=== PATIENT | female | born 1945 | race Caucasian/White ===

== ENCOUNTER 2020-05-15 14:18 | Outpatient (CLI) | payer MEDICARE, SELFPAY ==
[2020-05-15 14:38] LABS: Basophils Absolute Auto 0.1 K/mm3 (0.0-0.1); Basophils Percent Auto 1.1 % (0.2-1.2); Eosinophils Absolute Auto 0.4 K/mm3 (0-0.3); Eosinophils Percent Auto 5.1 % (0-4.4); Hematocrit 42.7 % (37.0-47.0); Hemoglobin 13.4 g/dL (12.0-15.0); Immature Granulocyte Absolute 0.02 K/mm3 (0.00-0.031); Immature Granulocyte Percent A 0.3 % (0-0.5); Lymphocytes Absolute Auto 2.32 K/mm3 (0.9-3.2); Lymphocytes Percent Auto 31.2 % (18.3-44.2); Mean Corpuscular HGB Conc 31.4 g/dl (32-36); Mean Corpuscular Hemoglobin 28.8 pg (26-34); Mean Corpuscular Volume 91.8 fl (80-100); Mean Platelet Volume 9.7 fl (7.4-10.4); Monocytes Absolute Auto 0.6 K/mm3 (0.1-0.6); Monocytes Percent Auto 7.7 % (2.6-8.5); Neutrophils Absolute Auto 4.1 K/mm3 (1.3-6.7); Neutrophils Percent Auto 54.6 % (45.5-73.1); Platelet Count Result 285 k/mm3 (150-375); Red Blood Count 4.65 M/mm3 (4.2-5.4); Red Cell Distribution Width 12.9 % (11.5-14.5); White Blood Count 7.4 K/mm3 (4.5-10.0)
[2020-05-15 16:42] LABS: Iron 90 ug/dL (37-170)
[2020-05-15 16:51] LABS: Percent Iron Saturation 27 % (20-50)
== END 2020-05-15 14:19 | disposition home or self-care (01) ==
LOC: ANHLAB 14:20
PROVIDERS: PCP Family Medicine; Visit Provider Internal Medicine Hematology & Oncology
DX: D50.9 Iron deficiency anemia, unspecified (principal)
CPT/HCPCS: 36415; 82728; 83540; 83550; 85025

== ENCOUNTER 2021-01-20 14:39 | Outpatient (CLI) | payer MEDICARE, SELFPAY | END 2021-01-20 14:40 | disposition home or self-care (01) | LOC: ANHCOVIDVC 14:39 | PROVIDERS: PCP Family Medicine | DX: Z23 Encounter for immunization (principal) | CPT/HCPCS: 0001A; 91300 ==

== ENCOUNTER 2021-02-10 14:20 | Outpatient (CLI) | payer MEDICARE, SELFPAY | END 2021-02-10 14:21 | disposition home or self-care (01) | LOC: ANHCOVIDVC 14:20 | PROVIDERS: PCP Family Medicine | DX: Z23 Encounter for immunization (principal) | CPT/HCPCS: 0002A; 91300 ==

== ENCOUNTER 2021-06-25 13:53 | Outpatient (CLI) | payer MEDICARE, SELFPAY ==
--- NOTE | ~2021-06-25 | US_ITS ---
EXAMINATION: US carotid duplex BI DATE: 06/25/2021 14:26 INDICATION: Atherosclerosis. TECHNIQUE: Grayscale, color Doppler, and pulsed Doppler images of the cervical carotid arteries were obtained. The degree of vessel stenosis is placed in one of the following categories: normal, <50%, 5 0-69%, >=70% but less than near-occlusion, near-occlusion, or total occlusion. Note that percent sten osis relative to normal distal artery lumen diameter is indirectly measured from velocity measurement s as described by Clark, et al. Radiology 2003; 229:340-346. Notes: Normal: Peak systolic velocity <125 centimeters/sec and no plaque <50%. Peak systolic velocity <125 ( EDV <40; ICA/CCA PSV ratio <2.0; used these factors only a tandem lesions or low cardiac output or co ntralateral disease) 50-69 %: PSV 125-230 (EDV 40-100; ratio 2-4) >= 70% but less than near occlusion: PSV greater than 230 (EDV > 100; ratio> 4.0) Near Occlusion: PSV that is variable; markedly narrowed lumen Occlusion: Absent flow on color/spectral Doppler and no lumen on vanegas scale. COMPARISON: None. FINDINGS: RIGHT: The right common carotid artery (CCA) peak systolic velocity (PSV) is 104 cm/s. The right internal ca rotid artery (ICA) PSV is 70 cm/s. The right ICA end-diastolic velocity (EDV) is 12 cm/s. The right I CA/CCA PSV ratio is 0.7. The external carotid artery (ECA) PSV is 85 cm/s. There is antegrade flow in the right vertebral artery. LEFT: The left CCA PSV is 99 cm/s. The left ICA PSV is 73 cm/s. The left ICA EDV is 15 cm/s. The left ICA/C CA PSV ratio is 0.7. The ECA PSV is 81 cm/s. There is antegrade flow in the left vertebral artery. IMPRESSION: 1. Less than 50% stenosis in the right internal carotid artery by sonographic criteria. 2. Less than 50% stenosis in the left internal carotid artery by sonographic criteria. Reviewed, dictated and finalized at location A. IMPRESSION: 1. Less than 50% stenosis in the right internal carotid artery by sonographic dianne burks. 2. Less than 50% stenosis in the left internal carotid artery by sonographic serge lobo.
--- NOTE | ~2021-06-25 | US_ITS ---
US thyroid INDICATION: Follow-up thyroid nodules TECHNIQUE: Real-time sonographic images of the thyroid gland were obtained. COMPARISON: Ultrasound dated 08/09/2015 FINDINGS: The right thyroid lobe measures 3.1 x 1.9 x 1.8 cm. The left thyroid lobe measures 2.8 x 1 .5 x 1.7 cm. There is normal echotexture and echogenicity throughout the thyroid gland. There is a st able hypoechoic spongiform 8 mm right thyroid mass which is wider than tall, ill-defined margins and no calcifications, TR 2, not suspicious. No other discrete masses are identified. Normal vascular fortunato w is present. IMPRESSION: 1. Stable benign-appearing right thyroid nodule measuring 8 mm, TR 2, not suspicious. Otherwise, unr emarkable thyroid ultrasound. Reviewed, dictated and finalized at location A. IMPRESSION: 1. Stable benign-appearing right thyroid nodule measuring 8 mm, TR 2, not susp icious. Otherwise, unremarkable thyroid ultrasound.
== END 2021-06-25 13:54 | disposition home or self-care (01) ==
LOC: ANHIMG 13:53
PROVIDERS: PCP Family Medicine; Visit Provider Physician Assistant Medical
DX: R09.89 Other specified symptoms and signs involving the circulatory and respiratory systems (principal); E04.1 Nontoxic single thyroid nodule
CPT/HCPCS: 76536; 93880

== ENCOUNTER 2021-07-30 14:12 | Outpatient (CLI) | payer MEDICARE, SELFPAY ==
[2021-07-30 14:32] LABS: Basophils Absolute Auto 0.1 K/mm3 (0.0-0.1); Basophils Percent Auto 1.3 % (0.2-1.2); Eosinophils Absolute Auto 0.3 K/mm3 (0-0.3); Eosinophils Percent Auto 4.6 % (0-4.4); Hematocrit 37.9 % (37.0-47.0); Hemoglobin 11.8 g/dL (12.0-15.0); Immature Granulocyte Absolute 0.02 K/mm3 (0.00-0.031); Immature Granulocyte Percent A 0.3 % (0-0.5); Lymphocytes Absolute Auto 1.79 K/mm3 (0.9-3.2); Lymphocytes Percent Auto 28.4 % (18.3-44.2); Mean Corpuscular HGB Conc 31.1 g/dl (32-36); Mean Corpuscular Hemoglobin 28.4 pg (26-34); Mean Corpuscular Volume 91.1 fl (80-100); Mean Platelet Volume 8.9 fl (7.4-10.4); Monocytes Absolute Auto 0.6 K/mm3 (0.1-0.6); Neutrophils Absolute Auto 3.6 K/mm3 (1.3-6.7); Neutrophils Percent Auto 56.4 % (45.5-73.1); Platelet Count Result 260 k/mm3 (150-375); Red Blood Count 4.16 M/mm3 (4.2-5.4); Red Cell Distribution Width 14.3 % (11.5-14.5); White Blood Count 6.3 K/mm3 (4.5-10.0)
[2021-07-30 14:36] LABS: Blood Urea Nitrogen 27 mg/dL (8-26); Carbon Dioxide 26 mmol/L (22-30); Chloride 101 mmol/L (98-109); Estimated Glomerular Filt Rate > 60; Glucose 151 mg/dL (70-105); Potassium 4.4 mmol/L (3.5-4.9); Sodium 139 mmol/L (138-146)
[2021-07-30 16:37] LABS: Iron 42 ug/dL (37-170)
[2021-07-30 16:45] LABS: Percent Iron Saturation 12 % (20-50)
== END 2021-07-30 14:13 | disposition home or self-care (01) ==
LOC: ANHLAB 14:19
PROVIDERS: PCP Family Medicine; Visit Provider Internal Medicine Hematology & Oncology
DX: D50.9 Iron deficiency anemia, unspecified (principal)
CPT/HCPCS: 36415; 80048; 82728; 83540; 83550; 85025

== ENCOUNTER 2022-01-28 13:46 | Outpatient (CLI) | payer MEDICARE, SELFPAY ==
[2022-01-28 14:03] LABS: Basophils Percent Auto 0.5 % (0.2-1.2); Eosinophils Absolute Auto 0.2 K/mm3 (0-0.3); Eosinophils Percent Auto 3.4 % (0-4.4); Hematocrit 44.7 % (37.0-47.0); Hemoglobin 13.8 g/dL (12.0-15.0); Immature Granulocyte Absolute 0.02 K/mm3 (0.00-0.031); Immature Granulocyte Percent A 0.3 % (0-0.5); Lymphocytes Absolute Auto 1.66 K/mm3 (0.9-3.2); Lymphocytes Percent Auto 28.4 % (18.3-44.2); Mean Corpuscular HGB Conc 30.9 g/dl (32-36); Mean Corpuscular Volume 93.9 fl (80-100); Mean Platelet Volume 9.4 fl (7.4-10.4); Monocytes Absolute Auto 0.6 K/mm3 (0.1-0.6); Monocytes Percent Auto 9.8 % (2.6-8.5); Neutrophils Absolute Auto 3.4 K/mm3 (1.3-6.7); Neutrophils Percent Auto 57.6 % (45.5-73.1); Platelet Count Result 222 k/mm3 (150-375); Red Blood Count 4.76 M/mm3 (4.2-5.4); Red Cell Distribution Width 14.2 % (11.5-14.5); White Blood Count 5.8 K/mm3 (4.5-10.0)
[2022-01-28 14:07] LABS: Blood Urea Nitrogen 21 mg/dL (8-26); Carbon Dioxide 28 mmol/L (22-30); Chloride 101 mmol/L (98-109); Estimated Glomerular Filt Rate > 60; Glucose 141 mg/dL (70-105); Potassium 4.5 mmol/L (3.5-4.9); Sodium 140 mmol/L (138-146)
[2022-01-28 16:21] LABS: Iron 58 ug/dL (37-170)
[2022-01-28 16:31] LABS: Percent Iron Saturation 17 % (20-50)
== END 2022-01-28 13:47 | disposition home or self-care (01) ==
LOC: ANHLAB 13:47
PROVIDERS: PCP Family Medicine; Visit Provider Internal Medicine Hematology & Oncology
DX: D50.9 Iron deficiency anemia, unspecified (principal)
CPT/HCPCS: 36415; 80048; 82728; 83540; 83550; 85025

== ENCOUNTER 2022-08-27 12:47 | Outpatient (CLI) | payer MEDICARE, SELFPAY ==
[2022-08-27 13:00] LABS: Basophils Absolute Auto 0.1 K/mm3 (0.0-0.1); Basophils Percent Auto 0.7 % (0.2-1.2); Eosinophils Absolute Auto 0.3 K/mm3 (0-0.3); Eosinophils Percent Auto 3.9 % (0-4.4); Hematocrit 42.4 % (37.0-47.0); Hemoglobin 13.5 g/dL (12.0-15.0); Immature Granulocyte Absolute 0.03 K/mm3 (0.00-0.031); Immature Granulocyte Percent A 0.4 % (0-0.5); Lymphocytes Absolute Auto 1.74 K/mm3 (0.9-3.2); Lymphocytes Percent Auto 24.5 % (18.3-44.2); Mean Corpuscular HGB Conc 31.8 g/dl (32-36); Mean Corpuscular Hemoglobin 29.5 pg (26-34); Mean Corpuscular Volume 92.6 fl (80-100); Mean Platelet Volume 9.4 fl (7.4-10.4); Monocytes Absolute Auto 0.6 K/mm3 (0.1-0.6); Monocytes Percent Auto 7.7 % (2.6-8.5); Neutrophils Absolute Auto 4.5 K/mm3 (1.3-6.7); Neutrophils Percent Auto 62.8 % (45.5-73.1); Platelet Count Result 213 k/mm3 (150-375); Red Blood Count 4.58 M/mm3 (4.2-5.4); Red Cell Distribution Width 13.6 % (11.5-14.5); White Blood Count 7.1 K/mm3 (4.5-10.0)
[2022-08-27 13:03] LABS: Blood Urea Nitrogen 19 mg/dL (8-26); Carbon Dioxide 28 mmol/L (22-30); Chloride 102 mmol/L (98-109); Estimated Glomerular Filt Rate > 60; Glucose 162 mg/dL (70-105); Potassium 4.5 mmol/L (3.5-4.9); Sodium 140 mmol/L (138-146)
== END 2022-08-27 12:48 | disposition home or self-care (01) ==
LOC: ANHLAB 12:48
PROVIDERS: PCP Family Medicine; Visit Provider Internal Medicine Hematology & Oncology
DX: D50.9 Iron deficiency anemia, unspecified (principal)
CPT/HCPCS: 36415; 80047; 85025

== ENCOUNTER 2023-02-02 13:39 | Outpatient (CLI) | payer MEDICARE, SELFPAY ==
--- NOTE | ~2023-02-02 | CT_ITS ---
EXAMINATION: CT abdomen pelvis w con INDICATION: Lower abdominal pain TECHNIQUE: Computed tomographic images of the abdomen and pelvis were obtained after the administrati on of 100 cc of Omnipaque 350 intravenous contrast. The dose-length product (DLP) was 1594.60 mGy-cm. Automated exposure control and iterative reconstruction technique were employed. COMPARISON: 03/17/2019 FINDINGS: Minimal dependent atelectasis is present in the lung bases. The heart size is normal. The g allbladder is surgically absent. There is mild enlargement of the common bile duct and central intrah epatic ducts which is likely due to post cholecystectomy state. There is a small sliding hiatal herni a. The liver, spleen, pancreas, and adrenal glands are normal. The kidneys are unremarkable. No patho logically enlarged abdominal or pelvic lymph nodes are identified. There is no free intraperitoneal g as or evidence of bowel obstruction. There is calcified atherosclerosis of the aorta and many of the other arteries. No pathologically enlarged abdominal or pelvic lymph nodes are identified. There are changes of right total hip arthroplasty. There is severe lumbar spondylosis. A large volume of coloni c stool is present. IMPRESSION: 1. No CT correlate for the patient's symptoms. Reviewed, dictated and finalized at location F.
[2023-02-02 14:40] LABS: Estimated Glomerular Filt Rate 60
== END 2023-02-02 13:40 | disposition home or self-care (01) ==
PROVIDERS: PCP Family Medicine; Visit Provider Physician Assistant Medical
DX: R10.30 Lower abdominal pain, unspecified (principal); K92.1 Melena
CPT/HCPCS: 74177; Q9967

== ENCOUNTER 2023-07-01 08:12 | Outpatient (CLI) | payer MEDICARE, SELFPAY ==
--- NOTE | ~2023-07-01 | US_ITS ---
EXAMINATION: US abdomen limited DATE: 07/01/2023 09:14 INDICATION: Abnormal liver enzymes TECHNIQUE: Multiple grayscale and Doppler ultrasound images of the abdomen were obtained. COMPARISON: 10/22/2015 FINDINGS: Bowel gas obscures visualization of the pancreas. The visualized portions of the pancreas a re unremarkable. The liver demonstrates increased echogenicity, heterogenous echotexture, and decreas ed through transmission. No surface nodularity. Normal hepatopetal flow in the main portal vein. The gallbladder is surgically absent. The common bile duct is obscured by bowel gas. IMPRESSION: 1. Diffuse hepatic steatosis. Reviewed, dictated and finalized at location A.
== END 2023-07-01 08:13 | disposition home or self-care (01) ==
PROVIDERS: PCP Family Medicine; Visit Provider Nurse Practitioner Family
DX: R74.8 Abnormal levels of other serum enzymes (principal); R10.10 Upper abdominal pain, unspecified; K76.0 Fatty (change of) liver, not elsewhere classified
CPT/HCPCS: 76705

== ENCOUNTER 2024-01-11 13:08 | Outpatient (CLI) | payer MEDICARE, SELFPAY ==
--- NOTE | ~2024-01-11 | US_ITS ---
EXAMINATION: US axilla LT DATE: 01/11/2024 14:44 INDICATION: Swollen and tender lymph nodes at the neck and left axilla TECHNIQUE: Multiple grayscale and Doppler ultrasound images of the left axilla were obtained. COMPARISON: None FINDINGS: 3.0 x 2.6 x 1.1 cm left axillary lymph node with central fatty hilum. No other left axillary lymph no doc or other abnormal masses or fluid collections identified at the region of concern. IMPRESSION: 1. Mildly enlarged 3.0 x 2.6 x 1.1 cm left axillary lymph node which could be reactive, metastatic or related to lymphoma. Could consider ultrasound-guided core needle biopsy. Reviewed, dictated and finalized at location A. TLING ROOM OPERATOR IMPRESSION: 1. Mildly enlarged 3.0 x 2.6 x 1.1 cm left axillary lymph node which could be r eactive, metastatic or related to lymphoma. Could consider ultrasound-guided co re needle biopsy.
--- NOTE | ~2024-01-11 | US_ITS ---
EXAMINATION: US soft tissue head and neck DATE: 01/11/2024 14:44 INDICATION: Left neck focal swelling. TECHNIQUE: Multiple grayscale and Doppler ultrasound images of the head and neck were obtained. COMPARISON: None FINDINGS: There is no abnormal mass or lymphadenopathy in the patient's area of concern in left neck. IMPRESSION: 1. No abnormal mass or lymphadenopathy in the patient's area of concern in left neck. Reviewed, dictated and finalized at location E. SILO TENDER
== END 2024-01-11 13:09 | disposition home or self-care (01) ==
PROVIDERS: PCP Family Medicine; Visit Provider Nurse Practitioner Family
DX: R59.9 Enlarged lymph nodes, unspecified (principal); L03.113 Cellulitis of right upper limb
CPT/HCPCS: 76536; 76882

== ENCOUNTER 2024-02-10 08:59 | Outpatient (CLI) | payer MEDICARE, SELFPAY ==
--- NOTE | ~2024-02-10 | US_ITS ---
EXAMINATION: US axilla LT DATE: 02/10/2024 10:41 INDICATION: Left axillary lymphadenopathy. TECHNIQUE: Multiple grayscale and Doppler ultrasound images of the left axilla were obtained. COMPARISON: Left axillary ultrasound 01/11/2024 FINDINGS: There are no enlarged lymph nodes in the left axilla. IMPRESSION: 1. No abnormal left axillary lymphadenopathy. The biopsy was canceled. Reviewed, dictated and finalized at location A.
== END 2024-02-10 09:00 | disposition home or self-care (01) ==
PROVIDERS: PCP Family Medicine; Visit Provider Nurse Practitioner Family
DX: R22.32 Localized swelling, mass and lump, left upper limb (principal)
CPT/HCPCS: 76882

== ENCOUNTER 2024-02-29 12:49 | Outpatient (CLI) | payer MEDICARE, SELFPAY ==
--- NOTE | ~2024-02-29 | XR_ITS ---
XR chest 2V 02/29/2024 13:45 Indication: Wheezing for 2 months Procedure: AP and lateral views of the chest Comparison: No prior studies for comparison. Findings: Heart size normal. No focal air space disease, pulmonary edema, pleural effusion or suspect ed pneumothorax. Impression: 1: No acute cardiopulmonary disease. Reviewed, dictated and finalized at location B. Impression: 1: No acute cardiopulmonary disease.
--- NOTE | ~2024-02-29 | XR_ITS ---
XR cervical spine 4-5V 02/29/2024 13:45 Indication: Neck pain Procedure: 4 view cervical spine Comparison: 08/05/2015 Findings: There is advanced multilevel degenerative disc disease with disc narrowing at all cervical spine levels. There is degenerative anterolisthesis at C4-5. There is severe multilevel uncinate and facet hypertrophy. Lung apices are unremarkable. Odontoid process is normal. No significant preverteb ral soft tissue abnormality. Impression: 1: Severe cervical spondylosis. Reviewed, dictated and finalized at location B. Impression: 1: Severe cervical spondylosis.
--- NOTE | ~2024-02-29 | XR_ITS ---
Left Shoulder Technique: AP and scapular Y views were obtained. Clinical History: Pain Findings: No fracture or dislocation is seen. There is moderate to advanced degenerative change of th e glenohumeral joint, with prominent inferomedial humeral head osteophyte present. AC joint intact.. Soft tissues are unremarkable. Impression: Moderate to advanced glenohumeral joint degenerative change. Reviewed, dictated and finalized at location . Impression: Moderate to advanced glenohumeral joint degenerative change.
== END 2024-02-29 12:50 | disposition home or self-care (01) ==
LOC: ANHIMG 12:52
PROVIDERS: PCP Family Medicine; Visit Provider Physician Assistant
DX: R06.2 Wheezing (principal); M47.892 Other spondylosis, cervical region; M19.012 Primary osteoarthritis, left shoulder
CPT/HCPCS: 71046; 72050; 73030

== ENCOUNTER 2024-08-07 16:39 | Emergency (ER) | payer MEDICARE, SELFPAY ==
--- NOTE | ~2024-08-07 | XR_ITS ---
EXAM: XR shoulder LT min 2V, XR humerus LT DATE: 08/07/2024 18:07 HISTORY: pain lt shoulder top and down left arm. swelling per pt to . COMPARISON: 02/29/2024. FINDINGS: Normal mineralization. No fracture or dislocation. No lytic or blastic lesion. Mild AC kenny nt and moderate glenohumeral joint degenerative change. Moderate degenerative change in the left elbo w joint No erosion or periosteal change. Soft tissues within normal limits. IMPRESSION: No acute osseous finding in the left shoulder or left humerus. Reviewed, dictated and finalized at location K. IMPRESSION: No acute osseous finding in the left shoulder or left humerus.
--- NOTE | 2024-08-07 16:55 | ED.GENADULT ---
HPI - General Adult General Chief complaint: Extremity Problem,Nontraumatic Stated complaint: LT Arm shoulder pain Time Seen by Provider: 08/07/24 17:36 Source: patient, RN notes reviewed and old records reviewed Mode of arrival: ambulatory Limitations: no limitations History of Present Illness HPI narrative: 79-year-old female presents to the [facility] with generalized shoulder and upper arm pain. Patient states it has been going on for 3 weeks. Has been taking Tylenol Patient states she went to push her self up out of bed with her left arm 3 weeks ago when it felt ?her arm shattered. ? No bruising or swelling noted. Has limited range of motion secondary to discomfort. Is walking with a walker which she has no issues doing. Patient is extremely hard of hearing Patient denies seeking medical treatment before today. Has not seen her primary Patient denies chest pain, shortness of breath. Denies any nausea or vomit Onset (ago): week(s) (3) Related Data Home Medications Medication Instructions Recorded Confirmed cyclobenzaprine 10 mg tablet 10 mg PO BID 05/18/24 08/07/24 Allergies Allergy/AdvReac Type Severity Reaction Status Date / Time dapagliflozin [From [facility]] AdvReac Intermediate Gastrointestinal Verified 08/07/24 16:57 Upset meperidine AdvReac Mild Hives Verified 08/07/24 17:51 morphine AdvReac Mild Hives Verified 08/07/24 17:51 Penicillins AdvReac Mild Hives Verified 08/07/24 17:51 Review of Systems Review of Systems: All systems reviewed & are unremarkable except as noted in HPI and below Constitutional: Constitutional: Reports no additional constitutional complaints Eyes: Eyes: Reports no additional eye complaints ENT: Reports system reviewed and no additional complaints, except as documented Cardiovascular: Cardiovascular: Reports no additional cardiovascular complaints, Denies chest pain and Denies dyspnea Respiratory: Respiratory: Reports no additional respiratory complaints, Denies chest congestion, Denies cough and Denies dyspnea Gastrointestinal: Gastrointestinal: Reports no additional gastrointestinal complaints, Denies abdominal pain, Denies nausea and Denies vomiting Musculoskeletal: Musculoskeletal: Reports as per HPI Integumentary/Breasts: Skin/Breast: Reports system reviewed and no additional complaints, except as docu Neurologic: Reports system reviewed and no additional complaints, except as documented Psychiatric: Psychiatric: Reports no additional psychiatric complaints Allergic/Immunologic: Allergic/Immunologic: Reports no additional allergic/immunologic complaints PMFSH Past Medical History Medical History Abdominal pain Adult BMI 50.0-59.9 kg/sq m BMI greater than 40 BRBPR (bright red blood per rectum) Low grade fever Mass of axilla Morbid (severe) obesity due to excess calories Sinusitis Swollen lymph nodes Wheezing Family History Family History Mother Family history of chronic obstructive pulmonary disease COPD (chronic obstructive pulmonary disease) Thyroid activity decreased Tobacco abuse Father Family history of lung cancer Grandparent Family history of heart disease in male family member before age 55 Sibling Arthritis Social History Social History Smoking status: Never smoker Second hand tobacco smoke exposure: Yes Alcohol intake: never Substance use: never Substance use type: does not use Lack of Transportation: No Lack of Food: Never True Current Housing: I Have Housing Concerned About Future Housing: No Difficulty Paying Gas/Electric Bills: No Difficulty Paying for Meds: No Currently Unemployed: No Education: Bachelor's Degree Difficulty w/ Childcare or Family Care: No Living arrangements: alone Occupation/Education: retired
[2024-08-07 16:56] VITALS: BP 121/95; PULSE 86; RESP 20; TEMP 36.4; O2SAT 98
[2024-08-07 16:59] VITALS: BP 121/95; PULSE 86; RESP 20; TEMP 36.4; O2SAT 98
== END 2024-08-07 18:26 | disposition home or self-care (01) ==
PROVIDERS: Emergency Provider Nurse Practitioner; PCP Family Medicine
DX: M25.512 Pain in left shoulder (principal); E66.01 Morbid (severe) obesity due to excess calories; Z68.45 Body mass index [BMI] 70 or greater, adult
CPT/HCPCS: 73030; 73060; 99213; G0463